=== PATIENT | female | born 1985 | race Caucasian/White ===

== ENCOUNTER 2017-01-05 04:14 | Emergency (ER) | payer MEDICAID ==
[~2017-01-05] VITALS: Ht 149.9 cm; Wt 81.5 kg
[~2017-01-05 04:14] MED LIST: ALBU0.63 NEB; CYCL-259 PO; DICL100G25 PO; DOCO200C3 PO; DYCL5POW PO; ENOX40SY4 SQ; GABA300C10 PO; HEPA500024 SQ; HYDR-3150 PO; HYDR-3237 PO; HYDR-3241 PO; IBUP-1222 PO; METR500T PO; OXYC-302 PO; SERT25TA3 PO; TRAM50TA2 PO
[2017-01-05 06:44] LABS: HCG UR LOT HCG7030192
[2017-01-05 06:51] LABS: PATH.CAST-FLAG NOT PRESENT; SPERM-FLAG NOT PRESENT; SRC-FLAG NOT PRESENT; XTAL-FLAG NOT PRESENT; YLC-FLAG NOT PRESENT
[2017-01-05 06:52] LABS: HCG UR OBC PASS
[2017-01-05 07:06] LABS: HEMATOCRIT 39.8 % (34.6-47.8); HEMOGLOBIN 13.6 g/dL (11.7-16.4); WHITE BLOOD COUNT 9.8 x10^3/uL (3.4-10)
[2017-01-05 10:51] VITALS: BP 104/76
== END 2017-01-05 10:52 | disposition home or self-care (01) ==
LOC: ED 05:12
DX: N93.9 Abnormal uterine and vaginal bleeding, unspecified (principal); N94.6 Dysmenorrhea, unspecified; F17.210 Nicotine dependence, cigarettes, uncomplicated
CPT/HCPCS: 36415; 76830; 81001; 81003; 81025; 85025; 87086; 99285

== ENCOUNTER 2017-06-19 15:08 | Emergency (ER) | payer OTHER, MEDICAID ==
[~2017-06-19] VITALS: Ht 149.9 cm; Wt 71.2 kg
[2017-06-19 15:36] LABS: BASOPHILS # (AUTO) 0.02 x10^3/uL (0-0.1); BASOPHILS % (AUTO) 0 % (0-1); EOSINOPHILS # (AUTO) 0.07 x10^3/uL (0-0.4); EOSINOPHILS % (AUTO) 1 % (1-7); LYMPHOCYTES # (AUTO) 1.51 x10^3/uL (1-3.4); LYMPHOCYTES % (AUTO) 18 % (22-44); MD NO; MEAN CORPUSCULAR HEMOGLOBIN 31.6 pg (27.0-34.8); MEAN CORPUSCULAR HGB CONC 34.2 g/dL (32.4-35.8); MEAN CORPUSCULAR VOLUME 92.5 fL (80-100); MEAN PLATELET VOLUME 7.5 fL (7.4-10.4); MONOCYTES # (AUTO) 0.53 x10^3/uL (0.2-0.8); MONOCYTES % (AUTO) 6 % (2-9); NEUTROPHILS # (AUTO) 6.11 x10^3/uL (1.8-6.8); NEUTROPHILS % (AUTO) 74 % (42-75); PLATELET COUNT 343 x10^3/uL (130-400); RED BLOOD COUNT 4.47 x10^6/uL (3.82-5.3); RED CELL DISTRIBUTION WIDTH 13.2 % (9.6-15.2)
[2017-06-19 15:44] LABS: ALANINE AMINOTRANSFERASE 23 U/L (12-78); ANION GAP 7 mmol/L (5-15); CALCIUM 8.8 mg/dL (8.5-10.1); CHLORIDE 106 mmol/L (98-107); CREATININE 0.81 mg/dL (0.55-1.02)
[2017-06-19 15:51] LABS: ALKALINE PHOSPHATASE 58 U/L (45-117); BILIRUBIN,TOTAL 0.8 mg/dL (0.2-1.0); TOTAL PROTEIN 7.5 g/dL (6.4-8.2)
[2017-06-19 15:59] LABS: MICROSCOPIC NOT IND
[2017-06-19] MEDS ORDERED: ONDANSETRON ODT 8 MG PO ONE (16:00)
[2017-06-19] MEDS ORDERED: SODIUM CHLORIDE 0.9% 1,000ML IVBOLUS ONE (16:00)
[2017-06-19] MEDS ORDERED: SODIUM CHLORIDE FLUSH 10ML SYR IVF ONE (16:00)
[2017-06-19 16:02] LABS: CULTURE INDICATED? NO
[2017-06-19 16:11] LABS: AMPHETAMINE SCREEN, URINE Negative (Negative); BARBITURATE SCREEN, URINE Negative (Negative); BENZODIAZEPINE SCREEN, URINE Negative (Negative); CANNABINOID SCREEN, URINE Positive (Negative); COCAINE SCREEN, URINE Negative (Negative); METHADONE SCREEN, URINE Negative (Negative); OPIATE SCREEN, URINE Positive (Negative)
[2017-06-19] MEDS ORDERED: ONDANSETRON ODT 4 MG ONE (16:11)
[2017-06-19 16:40] VITALS: BP 96/62
== END 2017-06-19 17:25 | disposition home or self-care (01) ==
LOC: ED 16:02
DX: E86.0 Dehydration (principal); R11.0 Nausea; E87.6 Hypokalemia; Z86.711 Personal history of pulmonary embolism; Z98.51 Tubal ligation status; Z79.899 Other long term (current) drug therapy
CPT/HCPCS: 36415; 80053; 80307; 81003; 82962; 84703; 85025; 96360; 99284; J7030; Q0162

== ENCOUNTER 2017-12-20 08:58 | Emergency (ER) | payer OTHER, MEDICAID ==
[~2017-12-20] VITALS: Ht 149.9 cm; Wt 69.0 kg
[2017-12-20 09:03] VITALS: BP 138/83
[2017-12-20] MEDS ORDERED: LIDOCAINE-MPF 1%, 5ML ONE ×2 (09:21)
[2017-12-20] MEDS ORDERED: DIPH,PERTUSS(ACELL),TET VAC/PF 0.5 ML IM-VACC ONE ×2 (09:30→10:01)
[2017-12-20] MEDS ORDERED: LIDOCAINE-MPF 1%, 5ML INFIL ONE (09:30)
[2017-12-20] MEDS ORDERED: BUPIVACAINE/PF 0.25% INFIL ONE (09:30)
[2017-12-20] MEDS ORDERED: BACITRACIN ZINC OINT 500U/GM, 0.9 GM ONE (10:07)
== END 2017-12-20 10:29 | disposition home or self-care (01) ==
LOC: ED 10:15
DX: S62.633B Displaced fracture of distal phalanx of left middle finger, initial encounter for open fracture (principal); X58.XXXA Exposure to other specified factors, initial encounter; Y93.89 Activity, other specified; Y92.009 Unspecified place in unspecified non-institutional (private) residence as the place of occurrence of the external cause; Y99.8 Other external cause status
CPT/HCPCS: 64450; 90471; 90715; 99284